=== PATIENT | female | born 1940 | race Caucasian/White ===

== ENCOUNTER 2018-10-01 11:03 | Emergency (ER) | payer MEDICARE, OTHER | END 2018-10-01 14:34 | disposition home or self-care (01) | LOC: FTE 11:03 | DX: S69.91XA Unspecified injury of right wrist, hand and finger(s), initial encounter (principal); I10 Essential (primary) hypertension; Y04.8XXA Assault by other bodily force, initial encounter | CPT/HCPCS: 29130; 73130-RT; 99283-25 ==